=== PATIENT | male | born 1950 | race Caucasian/White ===

== ENCOUNTER 2022-04-12 13:43 | Inpatient (IN) | payer OTHER, MEDICARE, SELFPAY ==
[2022-04-12] VITALS (61 sets, daily range): BP systolic 70–134; BP diastolic 41–102; PULSE 88–114; RESP 9–32; TEMP 36.4–36.9; O2SAT 95–100; BMI 24.7
--- NOTE | ~2022-04-12 | US_ITS ---
Duplex Sonography of the bilateral lower extremities: Indication: Swelling Sagittal and transverse B-mode images as well as color-flow imaging were performed on the right and l eft femoral and popliteal veins. B-mode examination was done without and with compression in the tra nsverse plane. There is good visualization of the bilateral common femoral, proximal profunda femora l, superficial femoral, greater saphenous, and popliteal veins. Normal flow was seen on color-flow im aging. Normal compressibility was demonstrated. Bilateral posterior tibial and peroneal veins are al so patent. Impression: No evidence of deep vein thrombosis involving either lower extremity. Reviewed, dictated and finalized at location M. APPLICATION DEVELOPER Impression: No evidence of deep vein thrombosis involving either lower extremit y.
--- NOTE | ~2022-04-12 | XR_ITS ---
XR chest 2V 04/12/2022 15:26 Indication: Weakness. Procedure: 2 view chest Comparison: No prior studies for comparison. Findings: Heart size normal. Left lung clear. No pleural effusion or pneumothorax. There are subtle r ight upper lobe infiltrates. No acute osseous abnormality. Impression: 1: Subtle right upper lobe infiltrates, suspicious for pneumonia. Reviewed, dictated and finalized at location B. CUTTING OPERATOR Impression: 1: Subtle right upper lobe infiltrates, suspicious for pneumonia.
--- NOTE | 2022-04-12 14:12 | ECG_ITS ---
Measurements Intervals Rogers Rate: 108 P: 79 ND: 162 QRS: 80 QRSD: 89 T: -72 QT: 357 QTc: 479 Interpretive Statements [address] T[address] DEVIATION AND MODERATE T-WAVE ABNORMALITY, CONSIDER INFERIOR ISCHEMIA [-0.1+ mV T WAVE IN II/aVF] ABNORMAL ECG NO PREVIOUS ECG AVAILABLE FOR COMPARISON Electronically Signed On 04-13-2022 14:07:10 REAL ESTATE ADMINISTRATOR by Grant Hdz M.D.
--- NOTE | 2022-04-12 14:30 | ED.WEAKNESS ---
HPI - Weakness General Chief complaint: Weakness Stated complaint: weakness Time Seen by Provider: 04/12/22 14:11 Source: patient and EMS Mode of arrival: EMS Limitations: no limitations History of Present Illness HPI Narrative: Patient 72 years old white male came to the emergency room by ambulance from home complaining of general weakness. Patient does not answer any question except in the presence of his which is not available at this time. [facility], history of bladder [facility], last chemotherapy 2 weeks ago. He denies any fever, nausea, vomiting, abdominal pain or urinary symptoms. He reports some chills. Patient's reported that pt was at [facility] at the beginning of this month. And currently on anticoagulant medication, does not know the name of it Related Data Allergies Allergy/AdvReac Type Severity Reaction Status Date / Time iodine Allergy Unknown Anaphylaxis Verified 04/12/22 17:59 shellfish derived Allergy Unknown Anaphylaxis Verified 04/12/22 17:59 Contrast Media Allergy Mild Anaphylaxis Uncoded 04/12/22 17:59 Review of Systems Review of Systems: All systems reviewed & are unremarkable except as noted in HPI and below Exam Narrative: General appearance: Well-developed, well-nourished, frail Skin: , pale Head: Normocephalic, nontraumatic Eyes: Clear conjunctiva ENT: Oropharynx normal, ears normal, nose normal Neck: Supple, nontender Chest and respiratory: Airway patent, no respiratory distress, no accessory muscle use Heart: Regular rate/rhythm Abdomen: Soft, nontender, no organomegaly, quiet bowel sounds, rectal exam showed dark stool, guaiac positive Vascular: Normal peripheral pulses, normal capillary refill. Musculoskeletal: Normal range of motion, nontender back Neurologic: Alert and oriented ?3, EARTH SCIENCE TEACHER is normal as tested, no gross motor deficit Course Consultations Consultation #1: Magno Date: 04/12/22 Time: 17:54 Consultation #2: abdiaziz Date: 04/12/22 Time: 17:54 Vital Signs Vital signs: Vital Signs Temperature 36.4 C 04/12/22 13:40 Pulse Rate 114 H 04/12/22 13:40 Respiratory Rate 20 04/12/22 13:40 Blood Pressure 125/90 04/12/22 13:40 Pulse Oximetry 96 04/12/22 13:40 Oxygen Delivery Nasal Cannula 04/12/22 13:40 Oxygen Flow Rate 2 04/12/22 13:40 Temperature 36.4 C 04/12/22 13:40 Pulse Rate 108 H 04/12/22 15:35 Respiratory Rate 18 04/12/22 15:35 Blood Pressure 89/58 L 04/12/22 15:35 Pulse Oximetry 100 04/12/22 15:35 Oxygen Delivery Nasal Cannula 04/12/22 13:40 Oxygen Flow Rate 2 04/12/22 13:40 Procedures Central Line Placement Right Femoral: Central Line Date: 04/12/22 Central Line Time: 17:51 Discussed w/ the patient/family/POA,the placement of a central venous catheter, including its clinical necessity/indication & associated potential risks, benifits and alternatives.: Yes The patient/family/POA understand(s) and acknowledge(s) the need to proceed with central venous catheter insertion as an important element of the patient's clinical management.: Yes Performed Emergently - Given emergent patient condition, temporal constraints may have precluded informed consent.: Yes Time Out Performed: Yes (25 minutes) Patient Placed on Monitor/Pulse Ox: Yes Max. Sterile Barrier Technique: Caps, large sterile sheet and hand hygiene Central Line Prep: 2% chlorhexidine scrub Technique: sterile prep/drape Local Anesthetic: none Ultrasound Used for Placement: No Central Line Lumen Inserted: triple Post Procedure: sutured in place, good blood return, all ports a
[2022-04-12] MEDS: SODIUM CHLORIDE 0.9% IV 1,000 ML 30 ML IV CONT (15:01)
--- NOTE | 2022-04-12 15:10 | PC.NURSE ---
Contacted pleb about drawing blood after 4 unsuccessful attempts. Jeni Camacho, stated, I'll be down in a few.
--- NOTE | 2022-04-12 15:14 | PC.NURSE ---
BP discussed with patient and the possible need for a central line explained. Patient declined and states I don't really want that . at bedside and requests that patient be transferred to [facility]. Dr. Murcia made aware. BP remains 70s-90s systolic with IVF bolus infusing as ordered.
[2022-04-12 15:28] LABS: Anion Gap 10 mmol/L (8-16); Bilirubin,Total 0.3 mg/dL (0.2-1.3); Blood Urea Nitrogen 24 mg/dL (9-20); Calcium 6.6 mg/dL (8.4-10.2); Carbon Dioxide 25 mmol/L (22-30); Chloride 97 mmol/L (98-107); Estimated CRCL calculation 44 ml/min; Estimated Glomerular Filt Rate 46; Glucose 103 mg/dL (65-110); Potassium 3.9 mmol/L (3.4-5.0); Sodium 132 mmol/L (137-145)
[2022-04-12 15:29] LABS: Albumin Level 2.2 g/dL (3.5-5.1); Alkaline Phosphatase 75 U/L (38-126); Aspartate Amino Transferase 40 U/L (17-59); CRP 3.4 mg/dL (<1.0)
[2022-04-12 15:36] LABS: Alanine Aminotransferase 44 U/L (6-50)
[2022-04-12 15:49] LABS: Influenza A QL RT-PCR Negative (Negative); Influenza B QL RT-PCR Negative (Negative); RSV RNA, RT-PCR Negative (Negative); SARS-CoV-2 RNA PCR Negative
[2022-04-12 16:05] LABS: Basophils Percent Auto 0.2 % (0.2-1.2); Immature Granulocyte Absolute 0.26 K/mm3 (0.00-0.031); Immature Granulocyte Percent A 1.9 % (0-0.5); Lymphocytes Absolute Auto 1.67 K/mm3 (0.9-3.2); Lymphocytes Percent Auto 12.2 % (18.3-44.2); Mean Corpuscular HGB Conc 29.9 g/dl (32-36); Mean Corpuscular Hemoglobin 29.3 pg (26-34); Mean Corpuscular Volume 97.9 fl (80-100); Mean Platelet Volume 9.7 fl (7.4-10.4); Monocytes Absolute Auto 0.8 K/mm3 (0.1-0.6); Monocytes Percent Auto 6.1 % (2.6-8.5); Neutrophils Absolute Auto 10.9 K/mm3 (1.3-6.7); Neutrophils Percent Auto 79.6 % (45.5-73.1); Platelet Count Result 504 k/mm3 (150-375); Red Blood Count 1.88 M/mm3 (4.6-6.20); Red Cell Distribution Width 19.7 % (11.5-14.5); White Blood Count 13.7 K/mm3 (4.5-10.0)
[2022-04-12 16:18] LABS: INR 1.6; Partial Thromboplastin Time 31.6 SECONDS (22.3-36.8); Prothrombin Time 18.1 Seconds (11.1-14.7)
[2022-04-12 16:27] LABS: Lactic Acid Reflex 8.4 mmol/L (0.7-2.0)
[2022-04-12 16:38] LABS: Hematocrit 18.4 % (42.0-52.0); Hemoglobin 5.5 g/dL (14.0-18.0)
[2022-04-12 16:40] LABS: Platelet Estimate Increased (Adequate)
[2022-04-12 16:41] LABS: Anisocytosis 3+ (NORMAL); Hypochromasia 2+ (NORMAL); Schistocytes None Seen (NORMAL)
[2022-04-12] MEDS: NOREPINEPHRINE 8 MG/D5W 250 ML 8 MG/250 ML BAG 9.38 MG IV CONT (17:26)
[2022-04-12] MEDS: PANTOPRAZOLE SODIUM IV 40 MG VIAL IV PUSH (17:27)
--- NOTE | 2022-04-12 18:45 | PM.IMHP ---
H&P: HPI History of Present Illness Date/Time: 04/12/22 18:45 Chief Complaint: Weakness and dark stools. Narrative: This is a pleasant 72-year-old male with congestive heart failure, hypertension, hyperlipidemia, obstructive sleep apnea, chronic obstructive pulmonary disease, chronic respiratory failure on oxygen, bladder cancer, and DVT who presented to the emergency department via EMS from home for evaluation of weakness and dark stools. Patient provides the following history, his Iqra provides additional information with the patient's permission. He gets most of his care the [facility] and in fact he was admitted there between March 30 and April 02, 2022 after presenting to the ER with shortness of breath following his 2nd chemotherapy treatment for bladder cancer. He was reportedly treated for pneumonia and he was diagnosed with congestive heart failure (type unknown) and bilateral lower extremity DVTs at that time. He was started on metoprolol, Entresto, and apixaban during that stay and he states compliance with all medications. He has been doing all right since discharge though over the last several nights he has experience pain in the upper abdomen that he has a difficult time describing. It does not seem to radiate and he has not noticed any significant aggravating or alleviating factors. His appetite however has not been great though he denies nausea and vomiting. The last couple of days he has had formed stools though they have been quite dark. He has gotten increasingly weak the past couple of days and he came in today for evaluation. Blood pressures have been as low as the 70s over 40s and they did not improve markedly with IV fluids and a central line has since been inserted he has been started on vasopressors. His workup was significant for a WBC count of 13.7, hemoglobin 5.5, hematocrit 18.4%, lactic acid 8.4, BUN 24, creatinine 1.50, total protein 5.0, albumin 2.2. Chest x-ray shows a subtle right upper lobe infiltrate suspicious for pneumonia. He is being admitted in this setting for antibiotics, blood transfusion, and GI consultation given melena and profound anemia. He denies syncope and near-syncope, fever, chills, sweats, chest pain, cough, shortness of breath, vomiting, and diarrhea. Review of Systems Review of Systems: Twelve systems were reviewed and are negative except for as per HPI. [facility] Past Medical History Medical History Bilateral deep vein thromboses (03/2022) Bladder cancer Chronic back pain Chronic obstructive pulmonary disease Chronic respiratory failure with hypoxia, on home oxygen therapy Heart failure, type unknown Hyperlipidemia Hypertension Melena Obstructive sleep apnea on CPAP Posttraumatic stress disorder Surgical History Surgical History (Updated 04/12/22 @ 22:38 by Aury Ashley PA-C) History of carpal tunnel release History of colonoscopy with polypectomy History of cystoscopy Family History Family History Mother Cancer Son Heart disease Social History Social History (Updated 04/12/22 @ 22:38 by Aury Ashley PA-C) Social History: Surrogate medical decision maker: Iqra Dietz, spouse. Code status: Full code. Smoking packs per day: 0.5 Smoking cigarettes per day: 10.0 Years smoked: 50 Smoking pack-years: 25.00 Smoking status: Current every day smoker Tobacco type: cigarettes Additional smoking assessment comments: Smoked up to 2.5 packs of cigarettes a day at the most. Alcohol intake: current Drinks per week: 1 Substance use: never Lack of Transportation: No Lack of Food: Never True Current Housing: I Have Housing Concerned About Future Housing: No Difficulty Paying Gas/Electric Bills: No Difficulty Paying for Meds: No Currently Unemployed: No Education: High School Diploma/GED Difficulty w/ Ch
--- NOTE | 2022-04-12 18:54 | PC.NURSE ---
Patient's : Iqra [phone]
[2022-04-12 19:02] LABS: Reflex Lactic Acid Yes or No Add Lactic
[2022-04-12 19:41] LABS: Lactic Acid 6.3 mmol/L (0.7-2.0)
--- NOTE | 2022-04-12 21:10 | ADMGEN ---
This patient, Km Dietz, was admitted to Intensive Care Unit-7 on 04/12/2022 at 2100. Patient/family oriented to hospital policies and general routines including ID bracelet, bed and alarms, visiting hours, pain management, procedures, bathroom and other care routines, personal items, smoking policy, room service/diet, and visiting hours. Information on how to activate the Rapid Response Team has been discussed. Patient/Family are encouraged to report perceived risks to care and to ask questions if they do not understand what they are told or what they should do.
[2022-04-12] MEDS: SODIUM CHLORIDE 0.9% IV 250 ML 30 ML IV CONT (22:54)
[2022-04-13] VITALS (17 sets, daily range): BP systolic 105–140; BP diastolic 59–91; PULSE 72–99; RESP 14–20; TEMP 36.4–37; O2SAT 91–98
[2022-04-13] MEDS: traZODone HCL 25 MG TABLET PO ×2 (00:09→22:16)
[2022-04-13] MEDS: PANTOPRAZOLE SODIUM IV 40 MG VIAL IV PUSH ×3 (00:11→20:29)
[2022-04-13] MEDS: TUBING, BLOOD SET 1 EACH XX (00:35)
[2022-04-13 00:36] LABS: Appearance Urine Clear (Clear); Bilirubin Urine 1+ (Negative); Blood Urine 3+ (Negative); Color Urine Dark Yellow (Yellow); Glucose Urine UA Negative (Negative); Ketones Urine Negative (Negative); Leukocyte Esterase Ur Negative LEU/UL (Negative); Nitrate Urine Negative (Negative); Protein Urine 1+ mg/dL (Negative); Specific Grav Ur 1.025 (1.001-1.035); Urobilinogen Urine 0.2 mg/dL (<2.0); pH Urine 5.5 (5.0-9.0)
[2022-04-13] MEDS: SODIUM CHLORIDE 0.9% IV 250 ML 30 ML (00:36)
[2022-04-13 00:45] LABS: Bacteria Urine Trace /hpf; Hyaline Casts Urine 20-29 /lpf; Mucus Urine Rare /lpf; RBC Urine >75 /hpf (0-2); Squamous Epithelial Cell Urine Occasional /hpf (Few); WBC Urine 16-20 /hpf
[2022-04-13 00:47] LABS: Add Urine Microscopic? YES
[2022-04-13 04:22] LABS: Basophils Absolute Auto 0.1 K/mm3 (0.0-0.1); Basophils Percent Auto 0.9 % (0.2-1.2); Hematocrit 27.9 % (42.0-52.0); Hemoglobin 9.1 g/dL (14.0-18.0); Immature Granulocyte Absolute 0.06 K/mm3 (0.00-0.031); Immature Granulocyte Percent A 0.6 % (0-0.5); Lymphocytes Absolute Auto 2.33 K/mm3 (0.9-3.2); Lymphocytes Percent Auto 22.9 % (18.3-44.2); Mean Corpuscular HGB Conc 32.6 g/dl (32-36); Mean Corpuscular Hemoglobin 29.6 pg (26-34); Mean Corpuscular Volume 90.9 fl (80-100); Mean Platelet Volume 9.8 fl (7.4-10.4); Monocytes Absolute Auto 1.3 K/mm3 (0.1-0.6); Neutrophils Absolute Auto 6.4 K/mm3 (1.3-6.7); Neutrophils Percent Auto 62.6 % (45.5-73.1); Platelet Count Result 324 k/mm3 (150-375); Red Blood Count 3.07 M/mm3 (4.6-6.20); Red Cell Distribution Width 16.4 % (11.5-14.5); White Blood Count 10.2 K/mm3 (4.5-10.0)
[2022-04-13 04:35] LABS: Alanine Aminotransferase 27 U/L (6-50); Albumin Level 2.3 g/dL (3.5-5.1); Alkaline Phosphatase 66 U/L (38-126); Anion Gap 4 mmol/L (8-16); Aspartate Amino Transferase 29 U/L (17-59); Bilirubin,Total 0.5 mg/dL (0.2-1.3); Blood Urea Nitrogen 32 mg/dL (9-20); Calcium 6.3 mg/dL (8.4-10.2); Carbon Dioxide 31 mmol/L (22-30); Chloride 97 mmol/L (98-107); Estimated CRCL calculation 50 ml/min; Estimated Glomerular Filt Rate 54; Glucose 85 mg/dL (65-110); Magnesium 1.1 mg/dL (1.6-2.3); Potassium 3.4 mmol/L (3.4-5.0); Sodium 132 mmol/L (137-145)
[2022-04-13] MEDS: EUCERIN CREAM 120 GM JAR 1 APPLIC TOPICAL ×2 (08:09→20:29)
[2022-04-13] MEDS: GABAPENTIN 100 MG CAPSULE 200 MG PO ×3 (08:09→16:46)
[2022-04-13] MEDS: MAGNESIUM SULFATE 3GM/D5W100ML 3 GM/100 ML BAG IVPB (08:09)
[2022-04-13] MEDS: CALCIUM GLUC 2,000 MG/NS 100ML 2,000 MG/100 ML BAG 100 MG IVPB (08:09)
[2022-04-13] MEDS: KCL 40 MEQ/WATER 100 ML 100 ML 25 ML IVPB (08:09)
--- NOTE | 2022-04-13 09:26 | WPDCNINT ---
Assessment and Plan Assessment and plan (1) Acute GI bleeding: Code(s): K92.2 - Gastrointestinal hemorrhage, unspecified Status: Acute Assessment and Plan: Patient presented with weakness decreased appetite, abdominal pain, severe anemia, dark stools -likely upper GI bleed -was 5.5 on admission -received 3 units of packed RBCs -repeat hemoglobin is 9.1 -GI has been consulted and awaiting examination (2) Anemia: Code(s): D64.9 - Anemia, unspecified Status: Acute Assessment and Plan: Most likely related to GI bleed, patient has had dark stools -will continue to monitor hemoglobin and transfuse as needed (3) Shock: Code(s): R57.9 - Shock, unspecified Status: Acute Assessment and Plan: Patient was initially hypotensive, requiring central line and Levophed for a brief amount of time -after receiving packed RBCs, blood pressures have improved -lactic acid was 8.4 on admission, repeat lactic acid this morning is 1.0 -patient is on cefepime, Levaquin and vancomycin, will discontinue Levaquin -blood in urine cultures have been obtained and pending -MRSA screen pending -maintain mean arterial pressure > 65 mmHg for adequate end and perfusion (4) Pneumonia: Code(s): J18.9 - Pneumonia, unspecified organism Status: Acute Assessment and Plan: Chest x-ray with questionable right upper lobe infiltrate -continue cefepime and vancomycin as above -will deescalate if MRSA screen and blood cultures are negative (5) Renal failure: Code(s): N19 - Unspecified kidney failure Status: Acute Assessment and Plan: Acute kidney injury on admission with creatinine of 1.50 -patient has been adequately fluid-resuscitated received 3 units of packed RBCs -urine output has been adequate -creatinine down to 1.3 this morning -continue monitor renal function, electrolytes and urine output -will replace potassium level (6) Bladder cancer: Code(s): C67.9 - Malignant neoplasm of bladder, unspecified Status: Acute Assessment and Plan: Patient receives chemotherapy at [facility] -he recently had a 2nd round of chemotherapy for his bladder cancer (7) Chronic anticoagulation: Code(s): Z79.01 - shelter (current) use of anticoagulants Status: Acute Assessment and Plan: Patient recently had lower extremity DVT and [facility] and was started on apixaban -currently on on hold due to severe anemia and GI bleed Plan DVT prophylaxis: SCD, Stress ulcer prophylaxis: Protonix IV q.12 hours Nutrition: NPO for now Code Status: Full code Critical Care Time Spent: 46 minutes Due to a high probability of clinically significant, life threatening deterioration, the patient required my highest level of preparedness to intervene emergently and I personally spent this critical care time directly and personally managing the patient. This critical care time included obtaining a history; examining the patient; pulse oximetry; ordering and review of studies; arranging urgent treatment with development of a management plan; evaluation of patient's response to treatment; frequent reassessment; and discussions with other providers. It was exclusive of separately billable procedures and treating other patients and teaching time. Please see Assessment and Plan section and the rest of the note for further information on patient assessment and treatment This dictation may have been done utilizing a voice recognition system. Attempts have been made to correct errors. However, there may be uncorrected grammatical, spelling, and recognitions errors present. Supervisor Filling And Packing Consult Note Consult date: 04/13/22 Reason for consult: Severe anemia,, lactic acidosis, hypotension, GI bleed HPI: Km Dietz is a 72 year old male past medical history of congestive heart failure, essential hypertension, hyperlipidemia, obstructive sleep apnea, COPD, chronic respi
--- NOTE | 2022-04-13 11:08 | PCFNICU ---
ICU Rounding Note: Pt current nutrition is NPO. Last recorded weight is 82.9 kg. unsure of weight loss of admit. Bowel Motility: +Bm reported 04/12 Labs Reviewed:BUN 32, Na 132, GFR 54, Alb 2.3 Meds Noted:NS,Protonix Skin: WNL Additional Notes: Patient currently NPO. Dark stools noted. GI consult. Following daily in ICU rounds.
[2022-04-13 11:48] LABS: Glucose Point of Care 78 mg/dl (65-105)
[2022-04-13] MEDS: CENTRAL LINE FLUSH 10 ML IV PUSH ×2 (13:09→20:29)
--- NOTE | 2022-04-13 14:07 | WPDGICN ---
Assessment and Plan Assessment and plan (1) Melena: Code(s): K92.1 - Melena Status: Acute Assessment and Plan: will assess with egd, on iv protonix, he has also recently started on blood thinner and currently on hold BP is normal now after blood transfusion (2) Acute GI bleeding: Code(s): K92.2 - Gastrointestinal hemorrhage, unspecified Status: Acute Assessment and Plan: continue to monitor egd (3) Pneumonia involving right lung: Code(s): J18.9 - Pneumonia, unspecified organism Status: Acute Assessment and Plan: on antibiotics (4) Shock: Code(s): R57.9 - Shock, unspecified Status: Acute Assessment and Plan: resolved after medical treatment (5) Bladder cancer: Code(s): C67.9 - Malignant neoplasm of bladder, unspecified Status: Acute Assessment and Plan: recent chemotherapy, wonder if also is affecting his anemia (6) Chronic anticoagulation: Code(s): Z79.01 - skilled nursing (current) use of anticoagulants Status: Acute (7) Lactic acidosis: Code(s): E87.20 - Acidosis, unspecified Status: Acute Assessment and Plan: improved after medical treatment (8) Renal failure: Code(s): N19 - Unspecified kidney failure Status: Acute Assessment and Plan: improved GI Consult Note Consult date/time: 04/13/22 14:07 Reason for consult: melena HPI: Km Dietz is a 72 year old male with past medical history of congestive heart failure, essential hypertension, hyperlipidemia, obstructive sleep apnea, COPD, chronic respiratory failure on oxygen, bladder cancer, DVT on eliquis who presented the ED from home for evaluation of weakness and dark stools.? He was just recently started on metoprolol, Entresto and apixaban when he was admitted to [facility] from 03/30/2022 through 04/02/2022 for shortness of breath after he had his 2nd round of chemo therapy for his bladder cancer.? Also was treated there for pneumonia and congestive heart failure. He noted getting more fatigue and noted dark stools. On arrival to ER, his systolic blood pressures was in the 70s even after fluids then started on levophed and admitted to icu. WBC count was 13.7, hemoglobin 5.5, elevated lactic, BUN 21 creatinine 1.5. Chest x-ray shows subtle right upper lobe infiltrate suspicious for pneumonia.? He is given 3 units of packed RBCs.? No more signs of bleeding. He had colonoscopy few years ago. Review of Systems Constitutional: Constitutional: Reports fatigue and Reports lethargy Eyes: Eyes: Denies blurry vision ENT: Reports Normal hearing present Cardiovascular: Cardiovascular: Denies chest pain Respiratory: Respiratory: Reports dyspnea on exertion Gastrointestinal: Gastrointestinal: Reports melena Genitourinary: Comments: h/o bladder cancer Musculoskeletal: Musculoskeletal: Denies myalgias Integumentary/Breasts: Skin/Breast: Denies rash Neurologic: Denies Abnormal speech present Psychiatric: Psychiatric: Denies behavioral changes [facility] Past Medical History Medical History (Updated 04/13/22 @ 14:15 by Agustin Pearson MD) Bilateral deep vein thromboses (03/2022) Bladder cancer Chronic back pain Chronic obstructive pulmonary disease Chronic respiratory failure with hypoxia, on home oxygen therapy Heart failure, type unknown Hyperlipidemia Hypertension Melena Obstructive sleep apnea on CPAP Posttraumatic stress disorder Surgical History Surgical History (Updated 04/12/22 @ 22:38 by Aury Ashley PA-C) History of carpal tunnel release History of colonoscopy with polypectomy History of cystoscopy Family History Family History Mother Cancer Son Heart disease Social History Social History (Updated 04/12/22 @ 22:38 by Aury Ashley PA-C) Social History: Surrogate medical decision maker: Iqra
[2022-04-13 16:38] LABS: Hematocrit 25.6 % (42.0-52.0); Hemoglobin 8.4 g/dL (14.0-18.0); Mean Corpuscular HGB Conc 32.8 g/dl (32-36); Mean Corpuscular Hemoglobin 29.8 pg (26-34); Mean Corpuscular Volume 90.8 fl (80-100); Mean Platelet Volume 8.8 fl (7.4-10.4); Platelet Count Result 281 k/mm3 (150-375); Red Blood Count 2.82 M/mm3 (4.6-6.20); Red Cell Distribution Width 16.8 % (11.5-14.5); White Blood Count 14.3 K/mm3 (4.5-10.0)
[2022-04-13 16:49] LABS: Anion Gap 0 mmol/L (8-16); Blood Urea Nitrogen 35 mg/dL (9-20); Calcium 6.9 mg/dL (8.4-10.2); Carbon Dioxide 32 mmol/L (22-30); Chloride 97 mmol/L (98-107); Estimated CRCL calculation 50 ml/min; Estimated Glomerular Filt Rate 54; Glucose 80 mg/dL (65-110); Magnesium 1.6 mg/dL (1.6-2.3); Potassium 3.8 mmol/L (3.4-5.0); Sodium 129 mmol/L (137-145)
--- NOTE | 2022-04-13 16:49 | PC.NURSE ---
This patient, Km Dietz, was transferred to [[id number]] on 04/13/22 at 7088. Personal belongings sent with patient. Report given to [MARIA A Leonardo @ 1752 ]. Appropriate documentation sent with patient.
[2022-04-13 21:18] LABS: Glucose Point of Care 102 mg/dl (65-105)
[2022-04-14] VITALS (10 sets, daily range): BP systolic 99–134; BP diastolic 59–70; PULSE 77–95; RESP 17–20; TEMP 36.4–37; O2SAT 90–99; BMI 25.0
[2022-04-14 00:14] LABS: Glucose Point of Care 82 mg/dl (65-105)
[2022-04-14] MEDS: CENTRAL LINE FLUSH 10 ML IV PUSH ×3 (05:12→20:33)
[2022-04-14 05:18] LABS: Basophils Absolute Auto 0.1 K/mm3 (0.0-0.1); Basophils Percent Auto 0.6 % (0.2-1.2); Eosinophils Percent Auto 0.2 % (0-4.4); Hemoglobin 8.2 g/dL (14.0-18.0); Immature Granulocyte Absolute 0.09 K/mm3 (0.00-0.031); Immature Granulocyte Percent A 0.7 % (0-0.5); Lymphocytes Absolute Auto 2.11 K/mm3 (0.9-3.2); Lymphocytes Percent Auto 17.1 % (18.3-44.2); Mean Corpuscular HGB Conc 32.8 g/dl (32-36); Mean Corpuscular Hemoglobin 30.1 pg (26-34); Mean Corpuscular Volume 91.9 fl (80-100); Mean Platelet Volume 9.4 fl (7.4-10.4); Monocytes Percent Auto 8.3 % (2.6-8.5); Neutrophils Percent Auto 73.1 % (45.5-73.1); Platelet Count Result 275 k/mm3 (150-375); Red Blood Count 2.72 M/mm3 (4.6-6.20); Red Cell Distribution Width 16.9 % (11.5-14.5); White Blood Count 12.3 K/mm3 (4.5-10.0)
[2022-04-14 05:28] LABS: Glucose Point of Care 88 mg/dl (65-105)
[2022-04-14 05:31] LABS: Alanine Aminotransferase 25 U/L (6-50); Albumin Level 2.3 g/dL (3.5-5.1); Alkaline Phosphatase 83 U/L (38-126); Anion Gap 2 mmol/L (8-16); Aspartate Amino Transferase 30 U/L (17-59); Bilirubin,Total 0.4 mg/dL (0.2-1.3); Blood Urea Nitrogen 32 mg/dL (9-20); Calcium 6.8 mg/dL (8.4-10.2); Carbon Dioxide 31 mmol/L (22-30); Chloride 99 mmol/L (98-107); Estimated CRCL calculation 59 ml/min; Estimated Glomerular Filt Rate > 60; Glucose 82 mg/dL (65-110); Magnesium 1.4 mg/dL (1.6-2.3); Phosphorus 2.4 mg/dL (2.5-4.5); Potassium 3.7 mmol/L (3.4-5.0); Sodium 132 mmol/L (137-145)
[2022-04-14] MEDS: EUCERIN CREAM 120 GM JAR 1 APPLIC TOPICAL ×2 (08:57→20:32)
[2022-04-14] MEDS: PANTOPRAZOLE SODIUM IV 40 MG VIAL IV PUSH ×2 (08:57→20:32)
[2022-04-14] MEDS: GABAPENTIN 100 MG CAPSULE 200 MG PO ×3 (08:58→16:36)
--- NOTE | 2022-04-14 10:43 | PC.NURSE ---
To GI Lab via [facility]. Report called to Christine SAHA.
--- NOTE | 2022-04-14 10:50 | PM.IMPN ---
Progress Note: A&P Assessment and Plan (1) Shock: Code(s): R57.9 - Shock, unspecified Status: Acute Assessment and Plan: Likely multifactorial. He is hypovolemic from profound anemia. Sepsis is a possibility given leukocytosis and findings of pneumonia on chest x-ray. With recent diagnosis of congestive heart failure, cardiogenic shock is considered as well. His lactic acid level was 8.4 on arrival and has improved to 6.3. He was started on Levophed. Which is now off. Lactic acidosis has resolved. On vanc and cefepime which will be continued. Follow cultures. Records requested from [facility] to review recent echocardiogram. (2) GI bleed: Code(s): K92.2 - Gastrointestinal hemorrhage, unspecified Status: Acute Assessment and Plan: Patient has had upper abdominal discomfort the last couple of nights and his stool was melanotic and guaiac positive on rectal exam done in the emergency department. He has been started on pantoprazole 40 mg b.i.d. and he will be NPO after midnight for probable EGD in the morning. Apixaban is on hold for now though it is noted that his lower extremity DVTs were diagnosed within the past couple of weeks and either this will need to be restarted as soon as possible or an IVC filter may be considered. (3) Profound anemia: Code(s): D64.9 - Anemia, unspecified Status: Acute Assessment and Plan: Secondary to presumed upper GI bleed as above. He is being transfused to a stable hemoglobin. Hemoglobin of 5.5 on admission Received 3 units of packed red blood cells H&H post transfusion stable Presented with dark stool and severe anemia (4) Chronic anticoagulation: Code(s): Z79.01 - residential (current) use of anticoagulants Status: Acute Assessment and Plan: He has been on apixaban given for couple of weeks after he was found to have bilateral lower extremity DVTs. Anticoagulation currently on hold given profound anemia and shock with evidence of upper GI bleed. He is on strict bed rest. May need to consult surgery in the morning for IVC filter depending on EGD. (5) Lactic acidosis: Code(s): E87.20 - Acidosis, unspecified Status: Acute Assessment and Plan: Secondary to hypoperfusion from hypovolemia and hypotension. Sepsis is also a possibility as detailed above. Lactic acid level has improved but still remains elevated. He is unable to receive 30 milligrams/kilogram bolus given recent diagnosis of congestive heart failure and marked lower extremity edema. Lactic acidosis has resolved (6) Renal failure: Code(s): N19 - Unspecified kidney failure Status: Acute Assessment and Plan: MARIO mild 1.5 on admission. Resolved (7) Heart failure, type unknown: Code(s): I50.9 - Heart failure, unspecified Status: Acute Assessment and Plan: [facility] Avoid over-hydration; he was unable to receive 30 milligram/kilogram IV fluid bolus for findings of sepsis. (8) Obstructive sleep apnea on CPAP: Code(s): G47.33 - Obstructive sleep apnea (adult) (pediatric); Z99.89 - Dependence on other enabling machines and devices Status: Acute Assessment and Plan: CPAP will be provided for the patient to use while hospitalized. (9) Hypertension: Code(s): I10 - Essential (primary) hypertension Status: Acute Assessment and Plan: Currently hypotensive, antihypertensives on hold as above. (10) Chronic respiratory failure with hypoxia, on home oxygen therapy: Code(s): J96.11 - Chronic respiratory failure with hypoxia; Z99.81 - Dependence on supplemental oxygen Status: Acute Assessment and Plan: He is at his baseline oxygen requirement. (11) Chronic obstructive pulmonary disease: Code(s): J44.9 - Chronic obstructive pulmonary disease, unspecified Status: Acute Assessment and P
[2022-04-14] MEDS: LACTATED RINGERS 1,000 ML 150 ML IV CONT (10:56)
--- NOTE | 2022-04-14 11:06 | WPDANESEPPF ---
Anes - Initial Pre Proc Eval Procedure: Operation Date: 04/14/22 14:30 Proposed Procedures p Esophagogastroduodenoscopy - Agustin Pearson MD Date/Time: 04/14/22 11:06 Surgeon: Milo Parson MD Pre Op Diagnosis: Sepsis w hypotension,pneumonia,gi bleed,anemia, hx Patient Data Age: 72 Gender: M Height: 1.83 m Weight: 83.6 kg Last Vital Signs Temp 97.5 F L 04/14/22 11:00 Pulse 93 04/14/22 11:00 Resp 18 04/14/22 11:00 BP 103/63 04/14/22 11:00 Pulse Ox 97 04/14/22 11:00 O2 Del Method Nasal Cannula 04/14/22 11:00 O2 Flow Rate 2 04/14/22 11:00 Allergies Allergy/AdvReac Type Severity Reaction Status Date / Time bee venom protein (honey bee) Allergy Severe Anaphylaxis Verified 04/13/22 11:13 Iodinated Contrast Media Allergy Severe Anaphylaxis Verified 04/13/22 10:22 iodine Allergy Severe Anaphylaxis Verified 04/13/22 10:22 shellfish derived Allergy Severe Anaphylaxis Verified 04/13/22 10:22 rosuvastatin Allergy Intermediate Hives Verified 04/13/22 11:13 simvastatin Allergy Intermediate Hives Verified 04/13/22 11:13 Home Medications Medication Instructions Recorded Confirmed Type apixaban 5 mg tablet 5 mg PO Q12H 04/12/22 04/13/22 History atorvastatin 80 mg tablet 40 mg PO HS 04/12/22 04/13/22 History cholecalciferol (vitamin D3) 50 50 mcg PO DAILY 04/12/22 04/12/22 History mcg (2,000 unit) tablet cyclobenzaprine 10 mg tablet 10 mg PO HS 04/12/22 04/12/22 History diclofenac sodium 1 % topical gel 2 g topical QID 04/12/22 04/12/22 History furosemide 40 mg tablet 40 mg PO DAILY 04/12/22 04/12/22 History gabapentin 100 mg capsule 200 mg PO TID 04/12/22 04/12/22 History hydrophilic cream 1 applic topical Q12H 04/12/22 04/13/22 History metoprolol succinate 25 mg 12.5 mg PO DAILY 04/12/22 04/12/22 History tablet,extended release 24 hr polyvinyl alcohol 1.4 % eye drops 1 drp EACH EYE BID PRN Dry Eyes 04/12/22 04/12/22 History prochlorperazine maleate 10 mg 10 mg PO Q6H PRN Nausea 04/12/22 04/12/22 History tablet sacubitril 49 mg-valsartan 51 mg 0.5 tablet PO Q12H 04/12/22 04/13/22 History tablet sertraline 50 mg tablet 50 mg PO DAILY 04/12/22 04/12/22 History trazodone 50 mg tablet 50 mg PO HS PRN Insomnia 04/12/22 04/13/22 History lidocaine 5 % topical patch 2 patch topical DAILY 04/13/22 04/13/22 History nicotine (polacrilex) 2 mg buccal 2 mg buccal Q4H PRN Smoking 04/13/22 04/13/22 History mini lozenge Cessation tiotropium 2.5 mcg-olodaterol 2.5 2 puff inhalation DAILY 04/13/22 04/13/22 History mcg/actuation mist for inhalation Laboratory Tests 04/13/22 04/13/22 04/13/22 11:45 16:33 16:33 WBC 14.3 K/mm3 H K/mm3 (4.5-10.0) RBC 2.82 M/mm3 L M/mm3 (4.6-6.20) Hgb 8.4 g/dL L g/dL (14.0-18.0) Hct 25.6 % L % (42.0-52.0) MCV 90.8 fl fl (80-100) MCH 29.8 pg pg (26-34) MCHC 32.8 g/dl g/dl (32-36) RDW 16.8 % H % (11.5-14.5) Plt Count 281 k/mm3 k/mm3 (150-375) MPV 8.8 fl fl (7.4-10.4) Immature Gran % (Auto) Neut % (Auto) Lymph % (Auto) [place] % (Auto) Eos % (Auto) Baso % (Auto) Lymph # (Auto) [place] # (Auto) Eos # (Auto) Baso # (Auto) Abs Immat Gran (auto) Absolute Neuts (auto) Absolute Nucleated RBC Nucleated RBC % Sodium 129 mmol/L L mmol/L (137-145) Potassium 3.8 mmol/L mmol/L (3.4-5.0) Chloride 97 mmol/L L mmol/L (98-107) Carbon Dioxide 32 mmol/L H mmol/L (22-30) Anion Gap 0 mmol/L L mmol/L (8-16) BUN 35 mg/dL H mg/dL (9-20) Creatinine 1.30 mg/dL mg/dL (0.7-1.3) Estim Creat Clear Calc 50 ml/min ml/min Estimated GFR 54 L (59 - ) Glucose 80 mg/dL mg/dL (65-110
[2022-04-14 11:11] LABS: Glucose Point of Care 81 mg/dl (65-105)
[2022-04-14 12:49] LABS: Glucose Point of Care 76 mg/dl (65-105)
[2022-04-14] MEDS: SUCRALFATE SUSP 100 MG/ML 10 ML UDC 1000 MG PO ×2 (16:35→20:32)
[2022-04-14 17:55] LABS: Glucose Point of Care 136 mg/dl (65-105)
[2022-04-14] MEDS: traZODone HCL 25 MG TABLET PO (20:32)
[2022-04-14] MEDS: LINEZOLID 600 MG/300 ML 600 MG/300 ML SOLN 300 MG IVPB (20:32)
[2022-04-14 21:55] LABS: Glucose Point of Care 129 mg/dl (65-105)
[2022-04-14] MEDS: LIDOCAINE 5% PATCH 2 PATCH TRANSDERM (23:26)
[2022-04-14 23:34] LABS: Glucose Point of Care 107 mg/dl (65-105)
[2022-04-14 23:48] LABS: Vancomycin Trough 11.9 ug/mL (10.0-20.0)
[2022-04-15] VITALS (13 sets, daily range): BP systolic 104–114; BP diastolic 52–54; PULSE 80–95; RESP 16–18; TEMP 36.4–37; O2SAT 91–96
[2022-04-15] MEDS: CENTRAL LINE FLUSH 10 ML IV PUSH ×2 (05:24→13:03)
[2022-04-15] MEDS: SUCRALFATE SUSP 100 MG/ML 10 ML UDC 1000 MG PO ×4 (05:29→20:33)
[2022-04-15 06:22] LABS: Glucose Point of Care 126 mg/dl (65-105)
[2022-04-15] MEDS: LINEZOLID 600 MG/300 ML 600 MG/300 ML SOLN 300 MG IVPB ×2 (08:03→20:30)
[2022-04-15] MEDS: GABAPENTIN 100 MG CAPSULE 200 MG PO ×3 (08:09→16:41)
[2022-04-15] MEDS: PANTOPRAZOLE SODIUM IV 40 MG VIAL IV PUSH ×2 (08:10→20:32)
[2022-04-15] MEDS: EUCERIN CREAM 120 GM JAR 1 APPLIC TOPICAL ×2 (08:10→20:34)
[2022-04-15 08:15] LABS: Glucose Point of Care 104 mg/dl (65-105)
--- NOTE | 2022-04-15 10:15 | WPDANESPN ---
Anes - Prog Note Post-Op Date/Time: 04/15/22 10:15 Cardiovascular status: normal Respiratory status: normal Airway patency: baseline Mental status: baseline Post-Op hydration status: normal Vital Signs: Last Vital Signs Temp 37.0 C 04/15/22 04:45 Pulse 80 04/15/22 04:48 Resp 17 04/15/22 04:45 BP 114/54 L 04/15/22 04:45 Pulse Ox 96 04/15/22 04:45 O2 Del Method Nasal Cannula 04/14/22 20:00 O2 Flow Rate 1 04/14/22 20:00 Pain Score (VAS): 0 I/O: Intake & Output 04/14/22 04/15/22 04/15/22 23:59 07:59 15:59 Intake Total 590 650 Output Total 400 1300 Balance 190 -650 Laboratory Tests 04/14/22 05:05 04/14/22 05:05 04/14/22 04/14/22 04/14/22 11:07 12:46 17:52 POC Capillary Glucose 81 76 136 H Vancomycin Trough 04/14/22 04/14/22 04/14/22 20:30 22:37 23:25 POC Capillary Glucose 129 H 107 H Vancomycin Trough 11.9 04/15/22 04/15/22 05:28 07:59 POC Capillary Glucose 126 H 104 Vancomycin Trough Microbiology 04/13/22 10:45 Nasopharynx MRSA Culture - Final 04/13/22 00:20 Urine Clean Catch Urine Culture - Final Vanco Res Enterococcus faecium Post-procedural complaints: none Patient Feedback: Patient satisfied with anesthetic care.
--- NOTE | 2022-04-15 10:33 | PM.IMPN ---
Progress Note: A&P Assessment and Plan (1) Shock: Code(s): R57.9 - Shock, unspecified Status: Acute Assessment and Plan: Likely multifactorial. He is hypovolemic from profound anemia. Sepsis is a possibility given leukocytosis and findings of pneumonia on chest x-ray. With recent diagnosis of congestive heart failure, cardiogenic shock is considered as well. His lactic acid level was 8.4 on arrival and has improved to 6.3. He was started on Levophed. Which is now off. Lactic acidosis has resolved. On vanc and cefepime which will be continued. Follow cultures. Records requested from [facility] to review recent echocardiogram. (2) GI bleed: Code(s): K92.2 - Gastrointestinal hemorrhage, unspecified Status: Acute Assessment and Plan: Patient has had upper abdominal discomfort the last couple of nights and his stool was melanotic and guaiac positive on rectal exam done in the emergency department. He has been started on pantoprazole 40 mg b.i.d. and he will be NPO after midnight for probable EGD in the morning. Apixaban is on hold for now though it is noted that his lower extremity DVTs were diagnosed within the past couple of weeks and either this will need to be restarted as soon as possible or an IVC filter may be considered. Status post EGD with clean based duodenal ulcer no active signs of bleeding (3) Profound anemia: Code(s): D64.9 - Anemia, unspecified Status: Acute Assessment and Plan: Secondary to presumed upper GI bleed as above. He is being transfused to a stable hemoglobin. Hemoglobin of 5.5 on admission Received 3 units of packed red blood cells H&H post transfusion stable Presented with dark stool and severe anemia Continue to monitor H&H. (4) Chronic anticoagulation: Code(s): Z79.01 - emt intermediate (current) use of anticoagulants Status: Acute Assessment and Plan: He has been on apixaban given for couple of weeks after he was found to have bilateral lower extremity DVTs. Anticoagulation currently on hold given profound anemia and shock with evidence of upper GI bleed. He is on strict bed rest. May need to consult surgery in the morning for IVC filter depending on EGD. review of the records reveal that he E has no record of having a DVT in the past. I am not sure why he was on apixaban. However will need to hold apixaban at this time due to GI bleed and need to be held for at least 7 days he will [place] back with her primary care once he did gets discharged for evaluation in terms of restarting apixaban at that time Venous duplex was performed during the hospital stay and was negative for DVT. (5) Lactic acidosis: Code(s): E87.20 - Acidosis, unspecified Status: Acute Assessment and Plan: Secondary to hypoperfusion from hypovolemia and hypotension. Sepsis is also a possibility as detailed above. Lactic acid level has improved but still remains elevated. He is unable to receive 30 milligrams/kilogram bolus given recent diagnosis of congestive heart failure and marked lower extremity edema. Lactic acidosis has resolved (6) Renal failure: Code(s): N19 - Unspecified kidney failure Status: Acute Assessment and Plan: MARIO mild 1.5 on admission. Resolved (7) Heart failure, type unknown: Code(s): I50.9 - Heart failure, unspecified Status: Acute Assessment and Plan: [facility] Avoid over-hydration; he was unable to receive 30 milligram/kilogram IV fluid bolus for findings of sepsis. (8) Obstructive sleep apnea on CPAP: Code(s): G47.33 - Obstructive sleep apnea (adult) (pediatric); Z99.89 - Dependence on other enabling machines and devices Status: Acute Assessment and Plan: CPAP will be provided for the patient to use while hospitalized. (9) Hypertension: Code(s): I10 - Essential (primary) hypertension Status:
--- NOTE | 2022-04-15 10:35 | WPDGIPROGNO ---
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 (patient gets his med from [facility]) no nsaid's hold anticoagulation at least for 1 week repeat EGD in 1 year (2) Melena: Code(s): K92.1 - Melena Status: Acute Assessment and Plan: resolved (3) Acute blood loss anemia: Code(s): D62 - Acute posthemorrhagic anemia Status: Acute Assessment and Plan: resolved, from large DU (4) Pneumonia involving right lung: Code(s): J18.9 - Pneumonia, unspecified organism Status: Acute Assessment and Plan: on treatment (5) Chronic anticoagulation: Code(s): Z79.01 - halfway (current) use of anticoagulants Status: Acute Assessment and Plan: on hold (6) Shock: Code(s): R57.9 - Shock, unspecified Status: Acute Assessment and Plan: resolved Subjective Date/time seen: 04/15/22 10:35 Interval history: doing ok, tolerating diet and no more bleeding, noted more leg edema. is at bedside Review of Systems Review of Systems: All systems reviewed & are unremarkable except as noted in HPI and below Exam Const: General: comfortable and no acute distress HENMT: Face/Nose/Sinus: Normal nares present Eyes: General: appearance normal, both eyes and all related structures Neck: Neck: no JVD Resp: Auscultation: clear to auscultation bilaterally Cardio: Rate: regular rate Rhythm: regular rhythm GI: Inspection: non-distended GI Palp: Yes Soft to palpation and No Tenderness to palpation present (GI) Auscultation: normal bowel sounds Skin: General skin exam: normal color Neuro: Speech: normal speech Motor exam (neuro): 5/5 motor strength present throughout Extrem: Other: + edema legs Psych: Mental Status: mental status grossly normal Objective Data Vital Signs Vital Signs: Vital Signs - 24 hr 04/14/22 11:00 04/14/22 11:52 04/14/22 12:02 Temperature 97.5 F L Pulse Rate 93 95 95 Respiratory Rate 18 19 19 Blood Pressure 103/63 99/64 L 114/59 L Pulse Oximetry 97 90 95 Oxygen Delivery Nasal Cannula Nasal Cannula Nasal Cannula Oxygen Flow Rate 2 2 2 04/14/22 12:12 04/14/22 14:00 04/14/22 20:00 Temperature 98 F Pulse Rate 95 84 Respiratory Rate 19 19 Blood Pressure 114/59 L 130/70 Pulse Oximetry 95 99 99 Oxygen Delivery Nasal Cannula Nasal Cannula Oxygen Flow Rate 2 1 04/14/22 21:28 04/15/22 04:45 04/15/22 04:48 Temperature 98.6 F 98.6 F Pulse Rate 87 95 80 Respiratory Rate 17 17 Blood Pressure 116/63 114/54 L Pulse Oximetry 97 96 Oxygen Delivery Oxygen Flow Rate 04/15/22 10:21 Temperature Pulse Rate Respiratory Rate Blood Pressure Pulse Oximetry 91 Oxygen Delivery Nasal Cannula Oxygen Flow Rate 1 Intake/Output Intake/Output: Intake & Output 04/12/22 04/13/22 04/14/22 04/15/22 23:59 23:59 23:59 23:59 Intake Total 1000 2380 910 650 Output Total 1225 2450 1300 Balance 1000 1155 -1540 -650 Meds/Results Medications: Active Medications Generic Name Dose Route Start Last Admin Trade Name Freq PRN Reason Stop Dose Admin Acetaminophen 650 mg 04/12/22 23:01 Acetaminophen 325 Mg Tablet PO Q6H PRN Mild Pain (1-3) or Fever Artificial Tears 1 drop 04/12/22 23:07 Artificial Tears Ophth Soln 15 Ml Bottle EACH EYE BID PRN Dry Eyes Dextrose 12.5 gm 04/13/22 10:20 Dextrose 50% 25 Gm/50 Ml Syringe IV PUSH PRN PRN Hypoglycemia Protocol Gabapentin 200 mg 04/13/22 09:00 04/15/22 08:09 Gabapentin 100 Mg Capsule PO 200 mg TID GREG Administration Glucagon 1 mg 04/13/22 10:20 Glucagon For Inj 1 Mg Vial
[2022-04-15 11:00] LABS: Basophils Absolute Auto 0.1 K/mm3 (0.0-0.1); Basophils Percent Auto 0.6 % (0.2-1.2); Eosinophils Percent Auto 0.3 % (0-4.4); Hematocrit 23.6 % (42.0-52.0); Hemoglobin 7.5 g/dL (14.0-18.0); Immature Granulocyte Absolute 0.08 K/mm3 (0.00-0.031); Immature Granulocyte Percent A 0.7 % (0-0.5); Lymphocytes Absolute Auto 1.66 K/mm3 (0.9-3.2); Lymphocytes Percent Auto 15.4 % (18.3-44.2); Mean Corpuscular HGB Conc 31.8 g/dl (32-36); Mean Corpuscular Volume 94.4 fl (80-100); Mean Platelet Volume 9.2 fl (7.4-10.4); Monocytes Absolute Auto 0.9 K/mm3 (0.1-0.6); Monocytes Percent Auto 8.1 % (2.6-8.5); Neutrophils Absolute Auto 8.1 K/mm3 (1.3-6.7); Neutrophils Percent Auto 74.9 % (45.5-73.1); Platelet Count Result 211 k/mm3 (150-375); Red Cell Distribution Width 16.7 % (11.5-14.5); White Blood Count 10.8 K/mm3 (4.5-10.0)
[2022-04-15 11:14] LABS: Alanine Aminotransferase 25 U/L (6-50); Albumin Level 2.5 g/dL (3.5-5.1); Alkaline Phosphatase 90 U/L (38-126); Anion Gap 0 mmol/L (8-16); Aspartate Amino Transferase 25 U/L (17-59); Bilirubin,Total 0.4 mg/dL (0.2-1.3); Blood Urea Nitrogen 22 mg/dL (9-20); Carbon Dioxide 32 mmol/L (22-30); Chloride 95 mmol/L (98-107); Estimated CRCL calculation 59 ml/min; Estimated Glomerular Filt Rate > 60; Glucose 96 mg/dL (65-110); Magnesium 1.2 mg/dL (1.6-2.3); Potassium 3.8 mmol/L (3.4-5.0); Sodium 127 mmol/L (137-145)
[2022-04-15 12:23] LABS: Glucose Point of Care 99 mg/dl (65-105)
[2022-04-15] MEDS: MAGNESIUM SULF 2 GM/WATER 50ML 2 GM/50 ML BAG IVPB (12:38)
[2022-04-15] MEDS: CHOLECALCIFEROL 1,000 UNITS TABLET 2000 UNITS PO (12:39)
[2022-04-15] MEDS: FUROSEMIDE 40 MG TABLET PO (12:40)
[2022-04-15] MEDS: METOPROLOL SUCCINATE EXT REL 12.5 MG TABCR PO (12:40)
[2022-04-15] MEDS: SACUBITRIL/VALSARTAN 24-26 MG TABLET 1 TAB PO ×2 (12:41→20:33)
[2022-04-15] MEDS: IPRATROPIUM BR 0.02% INH SOLN 0.5 MG/2.5 ML VIAL INHALATION ×2 (15:46→20:51)
[2022-04-15] MEDS: ALBUTEROL SULFATE NEB 2.5 MG/3 ML INH INHALATION ×2 (15:47→20:51)
[2022-04-15 16:11] LABS: Glucose Point of Care 99 mg/dl (65-105)
[2022-04-15] MEDS: NEOMYCIN/POLYMYXIN/BACITRACIN OINTMENT PACKET 1 PACKET (19:01)
[2022-04-15] MEDS: CYCLOBENZAPRINE HCL 10 MG TABLET PO (20:33)
[2022-04-15] MEDS: traZODone HCL 25 MG TABLET PO (20:33)
[2022-04-15] MEDS: ATORVASTATIN 40 MG TABLET PO (20:34)
[2022-04-15 21:12] LABS: Glucose Point of Care 107 mg/dl (65-105)
[2022-04-15 23:27] LABS: Glucose Point of Care 111 mg/dl (65-105)
[2022-04-15 23:56] LABS: Pneumococcal Antigen Urine Not Detected (Not Detected)
[2022-04-16] VITALS (15 sets, daily range): BP systolic 94–112; BP diastolic 56–67; PULSE 78–96; RESP 16–18; TEMP 36.5–36.9; O2SAT 93–98
[2022-04-16 00:14] LABS: Glucose Point of Care 94 mg/dl (65-105)
[2022-04-16] MEDS: IPRATROPIUM BR 0.02% INH SOLN 0.5 MG/2.5 ML VIAL INHALATION ×4 (01:51→20:15)
[2022-04-16] MEDS: ALBUTEROL SULFATE NEB 2.5 MG/3 ML INH INHALATION ×4 (01:51→20:15)
[2022-04-16 04:44] LABS: Legionella pneumophila Ag Ur Not Detected (Not Detected)
[2022-04-16 05:14] LABS: Basophils Absolute Auto 0.1 K/mm3 (0.0-0.1); Basophils Percent Auto 0.7 % (0.2-1.2); Eosinophils Absolute Auto 0.1 K/mm3 (0-0.3); Eosinophils Percent Auto 0.5 % (0-4.4); Hematocrit 24.5 % (42.0-52.0); Hemoglobin 7.8 g/dL (14.0-18.0); Immature Granulocyte Absolute 0.07 K/mm3 (0.00-0.031); Immature Granulocyte Percent A 0.7 % (0-0.5); Lymphocytes Percent Auto 19.9 % (18.3-44.2); Mean Corpuscular HGB Conc 31.8 g/dl (32-36); Mean Corpuscular Hemoglobin 30.1 pg (26-34); Mean Corpuscular Volume 94.6 fl (80-100); Mean Platelet Volume 9.6 fl (7.4-10.4); Monocytes Absolute Auto 0.8 K/mm3 (0.1-0.6); Monocytes Percent Auto 8.3 % (2.6-8.5); Neutrophils Percent Auto 69.9 % (45.5-73.1); Platelet Count Result 196 k/mm3 (150-375); Red Blood Count 2.59 M/mm3 (4.6-6.20); Red Cell Distribution Width 16.7 % (11.5-14.5); White Blood Count 10.1 K/mm3 (4.5-10.0)
[2022-04-16 05:28] LABS: Alanine Aminotransferase 28 U/L (6-50); Albumin Level 2.4 g/dL (3.5-5.1); Alkaline Phosphatase 95 U/L (38-126); Anion Gap 1 mmol/L (8-16); Aspartate Amino Transferase 25 U/L (17-59); Bilirubin,Total 0.3 mg/dL (0.2-1.3); Blood Urea Nitrogen 16 mg/dL (9-20); Calcium 7.2 mg/dL (8.4-10.2); Carbon Dioxide 33 mmol/L (22-30); Chloride 97 mmol/L (98-107); Estimated CRCL calculation 65 ml/min; Estimated Glomerular Filt Rate > 60; Glucose 133 mg/dL (65-110); Magnesium 1.5 mg/dL (1.6-2.3); Potassium 3.8 mmol/L (3.4-5.0); Sodium 131 mmol/L (137-145)
[2022-04-16] MEDS: SUCRALFATE SUSP 100 MG/ML 10 ML UDC 1000 MG PO ×4 (05:39→20:28)
[2022-04-16 05:47] LABS: Glucose Point of Care 130 mg/dl (65-105)
[2022-04-16] MEDS: LINEZOLID 600 MG/300 ML 600 MG/300 ML SOLN 300 MG IVPB ×2 (08:13→20:28)
[2022-04-16] MEDS: SACUBITRIL/VALSARTAN 24-26 MG TABLET 1 TAB PO ×2 (08:14→20:28)
[2022-04-16] MEDS: CHOLECALCIFEROL 1,000 UNITS TABLET 2000 UNITS PO (08:15)
[2022-04-16] MEDS: METOPROLOL SUCCINATE EXT REL 12.5 MG TABCR PO (08:15)
[2022-04-16] MEDS: GABAPENTIN 100 MG CAPSULE 200 MG PO ×3 (08:15→17:28)
[2022-04-16] MEDS: EUCERIN CREAM 120 GM JAR 1 APPLIC TOPICAL ×2 (08:17→20:40)
[2022-04-16] MEDS: PANTOPRAZOLE SODIUM IV 40 MG VIAL IV PUSH ×2 (08:17→20:28)
[2022-04-16 12:33] LABS: Glucose Point of Care 139 mg/dl (65-105)
--- NOTE | 2022-04-16 14:00 | PM.IMPN ---
Progress Note: A&P Assessment and Plan (1) Shock: Code(s): R57.9 - Shock, unspecified Status: Acute Assessment and Plan: Likely multifactorial. He is hypovolemic from profound anemia. Sepsis is a possibility given leukocytosis and findings of pneumonia on chest x-ray. With recent diagnosis of congestive heart failure, cardiogenic shock is considered as well. His lactic acid level was 8.4 on arrival and has improved to 6.3. He was started on Levophed. Which is now off. Lactic acidosis has resolved. On vanc and cefepime which will be continued. Follow cultures. Records requested from [facility] to review recent echocardiogram. Records reviewed Blood pressure is stable (2) GI bleed: Code(s): K92.2 - Gastrointestinal hemorrhage, unspecified Status: Acute Assessment and Plan: Patient has had upper abdominal discomfort the last couple of nights and his stool was melanotic and guaiac positive on rectal exam done in the emergency department. He has been started on pantoprazole 40 mg b.i.d. and he will be NPO after midnight for probable EGD in the morning. Apixaban is on hold for now though it is noted that his lower extremity DVTs were diagnosed within the past couple of weeks and either this will need to be restarted as soon as possible or an IVC filter may be considered. Status post EGD with clean based duodenal ulcer no active signs of bleeding H&H is stable (3) Profound anemia: Code(s): D64.9 - Anemia, unspecified Status: Acute Assessment and Plan: Secondary to presumed upper GI bleed as above. He is being transfused to a stable hemoglobin. Hemoglobin of 5.5 on admission Received 3 units of packed red blood cells H&H post transfusion stable Presented with dark stool and severe anemia Continue to monitor H&H. Which remains stable (4) Chronic anticoagulation: Code(s): Z79.01 - petroleum terminal plant operator (current) use of anticoagulants Status: Acute Assessment and Plan: He has been on apixaban given for couple of weeks after he was found to have bilateral lower extremity DVTs. Anticoagulation currently on hold given profound anemia and shock with evidence of upper GI bleed. He is on strict bed rest. May need to consult surgery in the morning for IVC filter depending on EGD. review of the records reveal that he E has no record of having a DVT in the past. I am not sure why he was on apixaban. However will need to hold apixaban at this time due to GI bleed and need to be held for at least 7 days he will [id number] back with her primary care once he did gets discharged for evaluation in terms of restarting apixaban at that time Venous duplex was performed during the hospital stay and was negative for DVT. (5) Lactic acidosis: Code(s): E87.20 - Acidosis, unspecified Status: Acute Assessment and Plan: Secondary to hypoperfusion from hypovolemia and hypotension. Sepsis is also a possibility as detailed above. Lactic acid level has improved but still remains elevated. He is unable to receive 30 milligrams/kilogram bolus given recent diagnosis of congestive heart failure and marked lower extremity edema. Lactic acidosis has resolved (6) Renal failure: Code(s): N19 - Unspecified kidney failure Status: Acute Assessment and Plan: MARIO mild 1.5 on admission. Resolved (7) Heart failure, type unknown: Code(s): I50.9 - Heart failure, unspecified Status: Acute Assessment and Plan: [facility] Avoid over-hydration; he was unable to receive 30 milligram/kilogram IV fluid bolus for findings of sepsis. (8) Obstructive sleep apnea on CPAP: Code(s): G47.33 - Obstructive sleep apnea (adult) (pediatric); Z99.89 - Dependence on other enabling machines and devices Status: Acute Assessment and Plan: CPAP will be provided for the patient to use while hospitalized. (9) Hyper
[2022-04-16] MEDS: MAGNESIUM SULF 2 GM/WATER 50ML 2 GM/50 ML BAG IVPB (15:12)
--- NOTE | 2022-04-16 15:58 | WPDGIPROGNO ---
Progress Note: A&P Assessment and Plan (1) Duodenal ulcer: Code(s): K26.9 - Duodenal ulcer, unspecified as acute or chronic, without hemorrhage or perforation Status: Acute Assessment and Plan: no more bleeding he will need nursing home PPI on discharge tolerating diet EGD in 1 year (2) Acute blood loss anemia: Code(s): D62 - Acute posthemorrhagic anemia Status: Acute Assessment and Plan: resolved (3) Melena: Code(s): K92.1 - Melena Status: Acute (4) Shock: Code(s): R57.9 - Shock, unspecified Status: Acute Assessment and Plan: resolved (5) Pneumonia involving right lung: Code(s): J18.9 - Pneumonia, unspecified organism Status: Acute Assessment and Plan: on abx (6) Chronic anticoagulation: Code(s): Z79.01 - parts counterman (current) use of anticoagulants Status: Acute Assessment and Plan: repeat doppler ultrasound negative for clots anticoagulation is on hold Subjective Date/time seen: 04/16/22 15:58 Interval history: no more bleeding, still generalized weakness- he is asking to get PT at home Review of Systems Review of Systems: All systems reviewed & are unremarkable except as noted in HPI and below Exam Const: General: comfortable and no acute distress HENMT: Face/Nose/Sinus: Normal nares present Eyes: General: appearance normal, both eyes and all related structures Neck: Neck: no JVD Resp: Auscultation: clear to auscultation bilaterally Cardio: Rate: regular rate Rhythm: regular rhythm GI: Inspection: non-distended GI Palp: Yes Soft to palpation and No Tenderness to palpation present (GI) Auscultation: normal bowel sounds Skin: General skin exam: normal color Neuro: Speech: normal speech Motor exam (neuro): 5/5 motor strength present throughout Extrem: Other: + edema legs Psych: Mental Status: mental status grossly normal Objective Data Vital Signs Vital Signs: Vital Signs - 24 hr 04/15/22 16:00 04/15/22 20:51 04/15/22 20:53 Temperature Pulse Rate 88 85 Respiratory Rate 16 16 Blood Pressure Pulse Oximetry 93 Oxygen Delivery Nasal Cannula Oxygen Flow Rate 1 04/15/22 20:50 04/15/22 21:15 04/15/22 20:00 Temperature 97.6 F Pulse Rate 90 86 Respiratory Rate 17 16 Blood Pressure 110/53 L Pulse Oximetry 93 93 Oxygen Delivery Nasal Cannula Oxygen Flow Rate 1 04/16/22 01:52 04/16/22 01:58 04/16/22 04:30 Temperature 97.7 F Pulse Rate 82 89 82 Respiratory Rate 18 18 17 Blood Pressure 94/56 L Pulse Oximetry 96 Oxygen Delivery Oxygen Flow Rate 04/16/22 08:15 04/16/22 10:20 04/16/22 10:20 Temperature Pulse Rate 78 85 85 Respiratory Rate 16 Blood Pressure Pulse Oximetry 98 Oxygen Delivery Nasal Cannula Oxygen Flow Rate 1 04/16/22 10:35 04/16/22 08:00 04/16/22 14:09 Temperature Pulse Rate 81 84 Respiratory Rate 16 16 Blood Pressure Pulse Oximetry 98 Oxygen Delivery Nasal Cannula Oxygen Flow Rate 1 04/16/22 14:27 04/16/22 14:30 Temperature 98.4 F Pulse Rate 91 96 Respiratory Rate 16 18 Blood Pressure 108/63 Pulse Oximetry 94 Oxygen Delivery Oxygen Flow Rate Intake/Output Intake/Output: Intake & Output 04/13/22 04/14/22 04/15/22 04/16/22 23:59 23:59 23:59 23:59 Intake Total 2380 910 1840 840 Output Total 1225 2450 2850 800 Balance 1155 -2562 -1010 40 Meds/Results Medications: Active Medications Generic Name Dose Route Start Last Admin Trade Name Freq PRN Reason Stop Dose Admin Acetaminophen 650 mg 04/12/22 23:01 Acetaminophen 325 Mg Tablet PO Q6H PRN Mild Pain (1-3) or Fever Albuterol 2.5 mg 04/15/22 14:00 04/16/22 14:10 Albuterol Sulfate Neb 2.5 Mg/3 Ml Inh INHALATION 2.5 mg Q6HRT GREG Administration Artificial Tears 1 drop 04/12/22 23:07 Artificial Tears Ophth Soln 15 Ml Bottle EACH EYE BID PRN Dry
[2022-04-16 17:04] LABS: Glucose Point of Care 113 mg/dl (65-105)
[2022-04-16] MEDS: ATORVASTATIN 40 MG TABLET PO (20:28)
[2022-04-16] MEDS: CYCLOBENZAPRINE HCL 10 MG TABLET PO (20:28)
--- NOTE | 2022-04-16 20:48 | PCRCNOTE ---
Patient refused use of hospital cpap, stating he wears nasal pillows at home and our mask is too uncomfortable. RT encouraged nasal mask, patient declined.
[2022-04-16 21:02] LABS: Mycoplasma IgM Antibody Titer 67 U/mL (<770)
[2022-04-16 22:29] LABS: Glucose Point of Care 133 mg/dl (65-105)
[2022-04-17] MEDS: traZODone HCL 25 MG TABLET PO (02:16)
--- NOTE | 2022-04-17 04:59 | PCRCNOTE ---
0200 updraft treatment refused by patient due to not wanting to be awakened.
[2022-04-17 05:35] LABS: Basophils Absolute Auto 0.1 K/mm3 (0.0-0.1); Basophils Percent Auto 0.7 % (0.2-1.2); Eosinophils Absolute Auto 0.1 K/mm3 (0-0.3); Eosinophils Percent Auto 0.8 % (0-4.4); Hematocrit 27.1 % (42.0-52.0); Hemoglobin 8.4 g/dL (14.0-18.0); Immature Granulocyte Percent A 0.9 % (0-0.5); Lymphocytes Absolute Auto 2.32 K/mm3 (0.9-3.2); Lymphocytes Percent Auto 20.9 % (18.3-44.2); Mean Corpuscular Hemoglobin 29.2 pg (26-34); Mean Corpuscular Volume 94.1 fl (80-100); Monocytes Absolute Auto 0.8 K/mm3 (0.1-0.6); Monocytes Percent Auto 7.1 % (2.6-8.5); Neutrophils Absolute Auto 7.7 K/mm3 (1.3-6.7); Neutrophils Percent Auto 69.6 % (45.5-73.1); Platelet Count Result 203 k/mm3 (150-375); Red Blood Count 2.88 M/mm3 (4.6-6.20); Red Cell Distribution Width 17.5 % (11.5-14.5); White Blood Count 11.1 K/mm3 (4.5-10.0)
[2022-04-17 05:45] LABS: Alanine Aminotransferase 40 U/L (6-50); Albumin Level 2.7 g/dL (3.5-5.1); Alkaline Phosphatase 128 U/L (38-126); Anion Gap 3 mmol/L (8-16); Aspartate Amino Transferase 39 U/L (17-59); Bilirubin,Total 0.4 mg/dL (0.2-1.3); Blood Urea Nitrogen 13 mg/dL (9-20); Calcium 7.9 mg/dL (8.4-10.2); Carbon Dioxide 32 mmol/L (22-30); Chloride 97 mmol/L (98-107); Estimated CRCL calculation 59 ml/min; Estimated Glomerular Filt Rate > 60; Glucose 96 mg/dL (65-110); Magnesium 1.5 mg/dL (1.6-2.3); Sodium 132 mmol/L (137-145)
[2022-04-17 05:56] LABS: Glucose Point of Care 91 mg/dl (65-105)
[2022-04-17 06:00] VITALS: BP 117/69; PULSE 97; RESP 16; TEMP 36.8; O2SAT 90
[2022-04-17] MEDS: SUCRALFATE SUSP 100 MG/ML 10 ML UDC 1000 MG PO (06:12)
[2022-04-17 08:05] VITALS: PULSE 84; RESP 16
[2022-04-17] MEDS: UMECLIDINIUM/VILANTEROL 62.5-25 MCG ELLIPTA 1 PUFF INHALATION (08:05)
[2022-04-17] MEDS: IPRATROPIUM BR 0.02% INH SOLN 0.5 MG/2.5 ML VIAL INHALATION (08:05)
[2022-04-17] MEDS: ALBUTEROL SULFATE NEB 2.5 MG/3 ML INH INHALATION (08:06)
[2022-04-17 08:47] VITALS: PULSE 84; O2SAT 93
[2022-04-17 08:51] LABS: Glucose Point of Care 94 mg/dl (65-105)
--- NOTE | 2022-04-17 09:15 | PM.DS ---
DS: Admitting Diagnosis Discharge Date 04/17/2022 Admitting Diagnosis shortness of breath DS: Discharge Diagnosis Discharge Diagnosis (1) Shock: Code(s): R57.9 - Shock, unspecified Status: Acute (2) GI bleed: Code(s): K92.2 - Gastrointestinal hemorrhage, unspecified Status: Acute (3) Profound anemia: Code(s): D64.9 - Anemia, unspecified Status: Acute (4) Chronic anticoagulation: Code(s): Z79.01 - intermodal owner operator truck driver (current) use of anticoagulants Status: Acute (5) Lactic acidosis: Code(s): E87.20 - Acidosis, unspecified Status: Acute (6) Renal failure: Code(s): N19 - Unspecified kidney failure Status: Acute (7) Heart failure, type unknown: Code(s): I50.9 - Heart failure, unspecified Status: Acute (8) Obstructive sleep apnea on CPAP: Code(s): G47.33 - Obstructive sleep apnea (adult) (pediatric); Z99.89 - Dependence on other enabling machines and devices Status: Acute (9) Hypertension: Code(s): I10 - Essential (primary) hypertension Status: Acute (10) Chronic respiratory failure with hypoxia, on home oxygen therapy: Code(s): J96.11 - Chronic respiratory failure with hypoxia; Z99.81 - Dependence on supplemental oxygen Status: Acute (11) Chronic obstructive pulmonary disease: Code(s): J44.9 - Chronic obstructive pulmonary disease, unspecified Status: Acute (12) Bladder cancer: Code(s): C67.9 - Malignant neoplasm of bladder, unspecified Status: Acute (13) Pneumonia involving right lung: Code(s): J18.9 - Pneumonia, unspecified organism Status: Acute DS: Summary Hospital Course Hospital Course: # Shock: Likely multifactorial. is noted to be profoundly anemic with hemoglobin of 5. He Might be hypovolemic from profound anemia. Sepsis is a possibility given leukocytosis and findings of pneumonia on chest x-ray. With recent diagnosis of congestive heart failure, cardiogenic shock is considered as well. His lactic acid level was 8.4 on arrival and has improved to 6.3.? He was started on Levophed.? which was subsequently tapered off.? Lactic acidosis has resolved. He was started on broad-spectrum antibiotic with vancomycin cefepime and azithromycin. He was recently admitted at [facility] and had pneumonia and congestive heart failure at that time. His chest x-ray finding could be related to his recent pneumonia. As he did not had any new respiratory symptoms on admission. His urine culture did grew VRE E was placed on linezolid is sensitive to bacteria. Seven course his hypotension improved with transfusion.? # GI bleed: Patient has had upper abdominal discomfort the last couple of nights and his stool was melanotic and guaiac positive on rectal exam done in the emergency department. He has been started on pantoprazole 40 mg b.i.d. and he will be NPO after midnight for probable EGD in the morning. Apixaban is on hold for now though it is noted that his lower extremity DVTs were diagnosed within the past couple of weeks . ? Status post EGD with clean based duodenal ulcer no active signs of bleeding H&H is stable Reviewed records from [facility] which does not mention any findings of DVT. He had been on apixaban prior to that. His venous duplex was done in the hospital and was negative for DVT. Will stop his apixaban for now and will get back to his oncologist with started him on some blood thinner to be restarted if needed. # profound anemia: Secondary to presumed upper GI bleed as above. He is being transfused to a stable hemoglobin. Hemoglobin of 5.5 on admission Received 3 units of packed red blood cells H&H post transfusion stable Presented with dark stool and severe anemia Continue to monitor H&H.? Which remains stable # chronic anticoagulation: He has been on apixaban given for couple of weeks after he was found to have bilateral lower extremity DVTs. Anticoagu
[2022-04-17] MEDS: LIDOCAINE 5% PATCH 2 PATCH TRANSDERM (09:21)
[2022-04-17] MEDS: GABAPENTIN 100 MG CAPSULE 200 MG PO (09:22)
[2022-04-17] MEDS: ARTIFICIAL TEARS OPHTH SOLN 15 ML BOTTLE 1 DROP EACH EYE (09:22)
[2022-04-17] MEDS: MAGNESIUM OXIDE 200 MG TABLET PO (09:23)
[2022-04-17] MEDS: CHOLECALCIFEROL 1,000 UNITS TABLET 2000 UNITS PO (09:23)
[2022-04-17] MEDS: SACUBITRIL/VALSARTAN 24-26 MG TABLET 1 TAB PO (09:23)
[2022-04-17] MEDS: FUROSEMIDE 40 MG TABLET PO (09:23)
[2022-04-17] MEDS: METOPROLOL SUCCINATE EXT REL 12.5 MG TABCR PO (09:23)
[2022-04-17] MEDS: EUCERIN CREAM 120 GM JAR 1 APPLIC TOPICAL (09:24)
[2022-04-17] MEDS: LINEZOLID 600 MG TABLET PO (10:51)
== END 2022-04-17 11:26 | disposition home health service (06) | DRG 871 ==
LOC: ANHED 17:46 → ANHICU 19:27 → ANH2MED 04-13 17:35
PROVIDERS: Internal Medicine; Internal Medicine Gastroenterology; Physician Assistant; Admitting Provider Internal Medicine; Emergency Provider Emergency Medicine; Visit Provider Internal Medicine
PROC: 0DJ08ZZ Inspection of Upper Intestinal Tract, Via Natural or Artificial Opening Endoscopic (ICD-10-PCS; CPT 43235; principal; 2022-04-14 14:30)
DX: A41.9 Sepsis, unspecified organism (principal); J18.9 Pneumonia, unspecified organism; R65.21 Severe sepsis with septic shock; R57.0 Cardiogenic shock; K26.4 Chronic or unspecified duodenal ulcer with hemorrhage; N17.9 Acute kidney failure, unspecified; J96.11 Chronic respiratory failure with hypoxia; J44.0 Chronic obstructive pulmonary disease with (acute) lower respiratory infection; E87.21 Acute metabolic acidosis; D62 Acute posthemorrhagic anemia; N39.0 Urinary tract infection, site not specified; Z16.21 Resistance to vancomycin; K44.9 Diaphragmatic hernia without obstruction or gangrene; K22.70 Barrett's esophagus without dysplasia; B95.2 Enterococcus as the cause of diseases classified elsewhere; Z20.822 Contact with and (suspected) exposure to COVID-19; D64.9 Anemia, unspecified; G47.33 Obstructive sleep apnea (adult) (pediatric); F17.210 Nicotine dependence, cigarettes, uncomplicated; I11.0 Hypertensive heart disease with heart failure; I50.9 Heart failure, unspecified; C67.9 Malignant neoplasm of bladder, unspecified; Z79.01 Long term (current) use of anticoagulants; Z99.81 Dependence on supplemental oxygen; Z86.718 Personal history of other venous thrombosis and embolism
CPT/HCPCS: 36415; 36430; 36556; 71046; 80048; 80053; 80202; 81001; 82948; 83605; 83735; 84100; 84443; 85025; 85027; 85610; 85730; 86140; 86738; 86850; 86900; 86901; 86920; 87040; 87081; 87086; 87147; 87181; 87186; 87449; 87637; 87899; 88305; 93005; 93970; 94002; 94640; 96374; 97110; 97161; 99285; A9270; C1751; C9113; J0612; J0692; J1956; J2020; J2704; J3370; J3475; J3480; J7030; J7050; J7120; P9016